=== PATIENT | male | born 1970 | race Caucasian/White ===

== ENCOUNTER 2016-07-23 16:00 | Emergency (ER) | payer BC, OTHER ==
[2016-07-23 16:17] VITALS: BP 125/81; PULSE 82; TEMP 98.5; BMI 43.3
--- NOTE | 2016-07-23 16:51 | PDOC ---
History of Present Illness - General Chief Complaint: Sore Throat Stated Complaint: FEVER, CONGESTION Time Seen by Provider: 07/23/16 16:36 History Source: Patient Exam Limitations: No Limitations - History of Present Illness Timing/Duration: reports: just prior to arrival, changing over time, getting worse Severity: reports: mild Associated Symptoms: reports: chest pain/soreness, cough, fever/chills, nasal congestion Past History - Travel Traveled outside of the country in the last 30 days: No Close contact w/someone who was outside of country & ill: No - Past Medical History Allergies/Adverse Reactions: Allergies Allergy/AdvReac Type Severity Reaction Status Date / Time No Known Allergies Allergy Verified 07/23/16 16:17 Home Medications: Ambulatory Orders Oseltamivir Phosphate [Tamiflu -] 75 mg PO BID #10 capsule 07/23/16 Other medical history: obesity - Psycho/Social/Smoking Cessation Hx Suicidal Ideation: No Smoking History: Never smoked Information on smoking cessation initiated: No Hx Alcohol Use: No Drug/Substance Use Hx: No Substance Use Type: None Review of Systems - Review of Systems Able to Perform ROS?: Yes Is the patient limited Haitian proficient: Yes Constitutional: Yes: Symptoms Reported, See HPI, Malaise HEENTM: Yes: See HPI. No: Symptoms Reported Respiratory: Yes: See HPI, Cough Integumentary: Yes: Symptoms Reported Neurological: Yes: Symptoms reported All Other Systems: Reviewed and Negative *Physical Exam - Vital Signs Last Vital Signs Temp Pulse Resp BP Pulse Ox 98.5 F 82 18 125/81 98 07/23/16 16:15 07/23/16 16:15 07/23/16 16:15 07/23/16 16:15 07/23/16 16:15 - Physical Exam General Appearance: Yes: Nourished, Appropriately Dressed, Apparent Distress. 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, Fully Oriented, Alert, Normal Mood/ Affect, Normal Response, Motor Strength 09/03 Progress Note - Progress Note Progress Note: Upper respiratory infection, will treat with Tamiflu as patient strep testing - 2 days ago at PMD *DC/Admit/Observation/Transfer Diagnosis at time of Disposition: Influenzal acute upper respiratory infection - Discharge Dispostion Disposition: HOME Condition at time of disposition: Stable Admit: No - Patient Instructions Printed Discharge Instructions: DI for Viral Upper Respiratory Infection -- Adult Additional Instructions: Rest, drink lots of fluids: Teas, water, soups, Pedialyte Saltwater gargles Steamy showers/seem to face break up mucus Old-fashioned treatments help! Avoid contact with others until fevers and cough resolved as this is very contagious Lots of handwashing and good hygiene Continue [id number] medications for symptomatic relief Tylenol or Motrin for fever and pain Take all of Tamiflu as directed: 1 tab every 12 hours for 5 days Followup with private physician in one to 2 days as needed or if worsening Return to emergency department for worsened symptoms, fevers, dehydration Influenza takes between 5 and 7 days for resolution To not participate in any activity, work, or school until fevers and cough are gone for at least one day - Post Discharge Activity Work/School Note: Back to Work
[2016-07-23] MEDS ORDERED: predniSONE 20 MG TABLET (UD) ONE (17:53)
== END 2016-07-23 17:20 | disposition home or self-care (01) ==
LOC: JERFT 16:00
DX: J11.1 Influenza due to unidentified influenza virus with other respiratory manifestations (principal)
CPT/HCPCS: 99281-25

== ENCOUNTER 2016-07-26 09:35 | Emergency (ER) | payer BC ==
[2016-07-26 09:38] VITALS: BP 139/85; PULSE 91; TEMP 98.1; BMI 43.3
--- NOTE | 2016-07-26 10:07 | PDOC ---
History of Present Illness - General Chief Complaint: Pain Stated Complaint: RT FOOT PAIN Time Seen by Provider: 07/26/16 09:50 History Source: Patient Exam Limitations: No Limitations - History of Present Illness Initial Comments: 07/26/16 10:06 Patient states woke up this morning with worsening swelling and pain to his right foot. Denies knowledge of injury, however was home sick over the weekend and being treated for influenza. Patient states has worsening swelling, and tenderness primarily to the lateral aspect of his right foot. Occurred: reports: yesterday Severity: reports: mild, moderate Pain Location: reports: lower extremity (right foot and ankle- ) Method of Injury: Yes: unknown Modifying Factors: improves with: cold therapy, pain medication Loss of Consciousness: no loss of consciousness Associated Symptoms (Fall): denies symptoms Past History - Travel Traveled outside of the country in the last 30 days: No Close contact w/someone who was outside of country & ill: No - Past Medical History Allergies/Adverse Reactions: Allergies Allergy/AdvReac Type Severity Reaction Status Date / Time No Known Allergies Allergy Verified 07/26/16 09:36 Home Medications: Ambulatory Orders Oseltamivir Phosphate [Tamiflu -] 75 mg PO BID #10 capsule 07/23/16 - Surgical History Cholecystectomy: Yes - Psycho/Social/Smoking Cessation Hx Anxiety: No Suicidal Ideation: No Smoking History: Never smoked Have you smoked in the past 12 months: No Information on smoking cessation initiated: No Hx Alcohol Use: No Drug/Substance Use Hx: No Substance Use Type: None Trauma Specific PMHX - Complaint Specific PMHX Back Injury: No Neck Injury: No Review of Systems - Review of Systems Able to Perform ROS?: Yes Is the patient limited U[place]ayan proficient: Yes Constitutional: Yes: Symptoms Reported, See HPI. No: Fever, Malaise HEENTM: No: Symptoms Reported Respiratory: No: Symptoms reported Musculoskeletal: Yes: Symptoms Reported, See HPI, Joint Pain, Joint Swelling, Joint Stiffness Integumentary: Yes: Symptoms Reported, See HPI (right foot), Erythema Neurological: No: Symptoms reported All Other Systems: Reviewed and Negative *Physical Exam - Vital Signs Last Vital Signs Temp Pulse Resp BP Pulse Ox 98.1 F 91 H 18 139/85 100 07/26/16 09:36 07/26/16 09:36 07/26/16 09:36 07/26/16 09:36 07/26/16 09:36 - Physical Exam General Appearance: Yes: Nourished, Appropriately Dressed, Apparent Distress HEENT: positive: MARLY, Normal ENT Inspection, TMs Normal, Pharynx Normal Neck: positive: Supple Musculoskeletal: negative: Normal Inspection Extremity: positive: Normal Capillary Refill, Tender (with pain on flexion and extension. Worse pain at fifth metatarsal with point tenderness, no lateral or medial malleoli tenderness, negative navicular tenderness. Has swelling to the lateral foot, neurovascular intact to toes), Swelling. 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, Fully Oriented, Alert, Normal Mood/ Affect, Normal Response, Motor Strength 09/03 ED Treatment Course - RADIOLOGY Radiology Studies Ordered: Category Date Time Status ANKLE-RIGHT [RAD] Stat Radiology 07/26/16 10:04 Ordered Radiograph Interpretation: 07/26/16 10:48 X-ray negative for fractures Progress Note - Progress Note Progress Note: Right ankle sprain, will treat with Arash wrap and crutches NSAIDs and have follow -up with orthopedist *DC/Admit/Observation/Transfer Diagnosis at time of Disposition: Right ankle sprain Qualifiers: Encounter type: initial encounter Involved ligament of ankle: unspecified ligament Qualified Code(s): S93.401A - Sprain of unspecified ligament of right ankle, initial encounter - Discharge Dispostion Disposition: HOME Condition at time of disposition: Stable Admit: No - Referrals Referrals: Dariusz Jimenez MD [Staff Physician] - - Patient Instructions Printed Discharge Instructions: DI for Ankle Sprain Additional Instructions: Rest, ice to area on and off for 15 minutes 4-6 times a day Avoid heavy lifting or exercise until pain and swelling is resolved or until further directed Keep area highly elevated to reduce swelling Use splints/Arash wrap as directed Followup with orthopedist in one to 2 days if not improving, if significantly improved may wait one week for followup with orthopedist May use ibuprofen 2-200 mg tablets every 6 hours as needed for pain - Post Discharge Activity Work/School Note: Back to Work
[2016-07-26] MEDS ORDERED: KETOROLAC TROMETHAMINE 60 MG/2 ML VIAL IM ONE (10:52)
[2016-07-26] MEDS ORDERED: KETOROLAC TROMETHAMINE 60 MG/2 ML VIAL ONE (10:53)
== END 2016-07-26 10:57 | disposition home or self-care (01) ==
LOC: JERFT 09:35
DX: S93.401A Sprain of unspecified ligament of right ankle, initial encounter (principal); X58.XXXA Exposure to other specified factors, initial encounter; Y93.89 Activity, other specified; Y92.89 Other specified places as the place of occurrence of the external cause
CPT/HCPCS: 73610-TC-RT; 99282-25